=== PATIENT | female | born 1970 | race Caucasian/White ===

== ENCOUNTER 2017-12-30 13:04 | Emergency (ER) | payer OTHER ==
[2017-12-30] MEDS ORDERED: SODIUM CHLORIDE 0.9% 500 ML IV STA (13:20)
[2017-12-30] MEDS ORDERED: SODIUM CHLORIDE 0.9% 1,000 ML IV STA (13:20)
[2017-12-30] MEDS ORDERED: RX INFO: IV CONTRAST WAS GIVEN 1 EACH MISC MISCELLANE PRN (13:20)
[2017-12-30 14:04] LABS: Basophils % (A) 0 %; Eosinophils # (A) 0.2 k/uL (0-0.7); Eosinophils % (A) 2 %; HCT 42.8 % (34.0-46.0); HGB 14.3 gm/dL (11.4-16.0); Lymphocytes # (A) 1.9 k/uL (1.0-4.8); Lymphocytes % (A) 13 %; MCH 27.8 pg (25.0-35.0); MCHC 33.4 g/dL (31.0-37.0); MCV 83.3 fL (80.0-100.0); Mean Platelet Volume 7.8; Monocytes # (A) 0.4 k/uL (0-1.0); Monocytes % (A) 3 %; Neutrophils # (A) 11.5 k/uL (1.3-7.7); Neutrophils % (A) 81 %; Platelet Count 273 k/uL (150-450); RBC 5.13 m/uL (3.80-5.40); RDW 13.1 % (11.5-15.5); WBC 14.2 k/uL (3.8-10.6)
[2017-12-30 14:18] LABS: ALT 27 U/L (9-52); AST 18 U/L (14-36); Alkaline Phosphatase 63 U/L (38-126); Amylase 49 U/L (30-110); Anion Gap 7 mmol/L; Blood Urea Nitrogen 12 mg/dL (7-17); Calcium 9.6 mg/dL (8.4-10.2); Carbon Dioxide 27 mmol/L (22-30); Chloride 104 mmol/L (98-107); Glucose 89 mg/dL (74-99); Lipase 80 U/L (23-300); Sodium 138 mmol/L (137-145); Total Bilirubin 0.4 mg/dL (0.2-1.3); Total Protein 6.6 g/dL (6.3-8.2)
--- NOTE | 2017-12-30 14:28 | ED ---
Abdominal Pain HPI - General Chief Complaint: Abdominal Pain Stated Complaint: chest pain Time Seen by Provider: 12/30/17 13:15 Source: patient Mode of arrival: ambulatory Limitations: no limitations - History of Present Illness Initial Comments: This 47-year-old white female presents with a complaint of some abdominal pain. She states that it occurred fairly suddenly well at work shortly prior to arrival. She states that it is from her lower chest all the way down into her pelvis diffusely. She states that it was very severe initially and much improved currently. She denies any nausea, vomiting, diarrhea, constipation, fever, or chills. Previous similar incidents. She did not have anything to eat today so it does not appear to be food related. She is having tenderness mostly in her right lower quadrant. No other complaints or modifying factors. - Related Data Previous Rx's Medication Instructions Recorded traMADol HCl [Ultram] 50 - 100 mg PO Q6H PRN #20 tab 12/30/17 Allergies Allergy/AdvReac Type Severity Reaction Status Date / Time No Known Allergies Allergy Verified 12/30/17 14:06 Review of Systems ROS Statement: Those systems with pertinent positive or pertinent negative responses have been documented in the HPI. ROS Other: All systems not noted in ROS Statement are negative. Past Medical History Past Medical History: No Reported History History of Any Multi-Drug Resistant Organisms: None Reported Past Surgical History: No Surgical Hx Reported Past Psychological History: No Psychological Hx Reported Smoking Status: Current every day smoker Past Alcohol Use History: None Reported Past Drug Use History: None Reported General Exam - General Exam Comments Initial Comments: GENERAL: The patient is well nourished and well hydrated. VITAL SIGNS: Heart rate, blood pressure, respiratory rate reviewed as recorded in nurse's notes. EYES: Pupils are round and reactive. Extraocular movements are intact. No conjunctival / lid redness or swelling. ENT: No external evidence of injury, swelling, or ecchymosis. Airway is patent. Throat is clear. NECK: Nontender. No swelling or evidence of injury. No subcutaneous emphysema. Trachea is midline. No thyroid mass. HEART: Regular rate and rhythm. Good peripheral pulses. LUNGS/CHEST: Breath sounds clear and equal bilaterally. No rales, rhonchi, or wheezes. No ecchymosis, subcutaneous emphysema, or tenderness. ABDOMEN: There is some mild tenderness diffusely throughout the abdomen but worse in the right lower quadrant. No palpable masses or organomegaly. No peritoneal signs. No abdominal wall swelling or ecchymosis. EXTREMITIES: No extremity tenderness. Normal muscle tone and function. No thoracolumbar tenderness. NEUROLOGIC: Sensation is grossly intact. Cranial nerve exam reveals face is symmetrical, tongue is midline, speech is clear. SKIN: No abrasions or ecchymosis is noted. No induration or masses noted. PSYCHIATRIC: Alert and oriented. Appropriate behavior and judgment. Limitations: no limitations Course Vital Signs 12/30/17 12/30/17 13:06 14:01 Temperature 97.4 F L Pulse Rate 79 73 Respiratory 18 18 Rate Blood Pressure 134/68 137/75 O2 Sat by Pulse 100 100 Oximetry Medical Decision Making - Medical Decision Making The patient was seen and examined. All diagnostics were reviewed. An EKG was done and shows a normal sinus rhythm at a rate of 73. There is no acute ST-T wave changes identified. The NE intervals 148, QRS duration is 76, and QTC intervals 427. The recent did have an IV established and had some hydration. She refused any pain medications. The laboratory is reviewed and does show slight leukocytosis. Computed tomography scan did show a 3.6 cm right ovarian cyst. It is felt as though her symptoms likely are related to this cyst with possible slight rupture. They also note an irregular pancreas and the patient is informed of this and need to follow up with primary care physician for possible further testing in this regard. She did not require any pain medications in the ER. Her pain has significantly improved on recheck. Is felt as though she is stable for discharge. She does not have an [employer] doctor in this area and will also be referred to [employer] [facility] for further follow-up. - Lab Data Result diagrams: 12/30/17 13:49 12/30/17 13:49 Lab Results 12/30/17 12/30/17 12/30/17 Range/Units 13:49 13:49 13:49 WBC 14.2 H (3.8-10.6) k/uL RBC 5.13 (3.80-5.40) m/uL Hgb 14.3 (11.4-16.0) gm/dL Hct 42.8 (34.0-46.0) % MCV 83.3 (80.0-100.0) fL MCH 27.8 (25.0-35.0) pg MCHC 33.4 (31.0-37.0) g/dL RDW 13.1 (11.5-15.5) % Plt Count 273 (150-450) k/uL Neutrophils % 81 % Lymphocytes % 13 % Monocytes % 3 % Eosinophils % 2 % Basophils % 0 % Neutrophils # 11.5 H (1.3-7.7) k/uL Lymphocytes # 1.9 (1.0-4.8) k/uL Monocytes # 0.4 (0-1.0) k/uL Eosinophils # 0.2 (0-0.7) k/uL Basophils # 0.0 (0-0.2) k/uL PT 10.6 (9.0-12.0) sec INR 1.1 (<1.2) APTT 24.3 (22.0-30.0) sec Sodium 138 (137-145) mmol/L Potassium 4.0 (3.5-5.1) mmol/L Chloride 104 (98-107) mmol/L Carbon Dioxide 27 (22-30) mmol/L Anion Gap 7 mmol/L BUN 12 (7-17) mg/dL Creatinine 0.60 (0.52-1.04) mg/dL Est GFR (CKD-EPI)AfAm >90 (>60 ml/min/1.73 sqM) Est GFR (CKD-EPI)NonAf >90 (>60 ml/min/1.73 sqM) Glucose 89 (74-99) mg/dL Plasma Lactic Acid Chaim (0.7-2.0) mmol/L Calcium 9.6 (8.4-10.2) mg/dL Total Bilirubin 0.4 (0.2-1.3) mg/dL AST 18 (14-36) U/L ALT 27 (9-52) U/L Alkaline Phosphatase 63 (38-126) U/L Total Protein 6.6 (6.3-8.2) g/dL Albumin 4.0 (3.5-5.0) g/dL Amylase 49 (30-110) U/L Lipase 80 (23-300) U/L Urine Color Urine Appearance (Clear) Urine pH (5.0-8.0) Ur Specific Gackle (1.001-1.035) Urine Protein (Negative) Urine Glucose (UA) (Negative) Urine Ketones (Negative) Urine Blood (Negative) Urine Nitrite (Negative) Urine Bilirubin (Negative) Urine Urobilinogen (<2.0) mg/dL Ur Leukocyte Esterase (Negative) Urine RBC (0-5) /hpf Ur Squamous Epith Cells (0-4) /hpf Urine Mucus (None) /hpf 12/30/17 12/30/17 Range/Units 13:49 14:20 WBC (3.8-10.6) k/uL RBC (3.80-5.40) m/uL Hgb (11.4-16.0) gm/dL Hct (34.0-46.0) % MCV (80.0-100.0) fL MCH (25.0-35.0) pg MCHC (31.0-37.0) g/dL RDW (11.5-15.5) % Plt Count (150-450) k/uL Neutrophils % % Lymphocytes % % Monocytes % % Eosinophils % % Basophils % % Neutrophils # (1.3-7.7) k/uL Lymphocytes # (1.0-4.8) k/uL Monocytes # (0-1.0) k/uL Eosinophils # (0-0.7) k/uL Basophils # (0-0.2) k/uL PT (9.0-12.0) sec INR (<1.2) APTT (22.0-30.0) sec Sodium (137-145) mmol/L Potassium (3.5-5.1) mmol/L Chloride (98-107) mmol/L Carbon Dioxide (22-30) mmol/L Anion Gap mmol/L BUN (7-17) mg/dL Creatinine (0.52-1.04) mg/dL Est GFR (CKD-EPI)AfAm (>60 ml/min/1.73 sqM) Est GFR (CKD-EPI)NonAf (>60 ml/min/1.73 sqM) Glucose (74-99) mg/dL Plasma Lactic Acid Chaim 0.7 (0.7-2.0) mmol/L Calcium (8.4-10.2) mg/dL Total Bilirubin (0.2-1.3) mg/dL AST (14-36) U/L ALT (9-52) U/L Alkaline Phosphatase (38-126) U/L Total Protein (6.3-8.2) g/dL Albumin (3.5-5.0) g/dL Amylase (30-110) U/L Lipase (23-300) U/L Urine Color Light Yellow Urine Appearance Clear (Clear) Urine pH 6.0 (5.0-8.0) Ur Specific Gackle 1.008 (1.001-1.035) Urine Protein Negative (Negative) Urine Glucose (UA) Negative (Negative) Urine Ketones Trace H (Negative) Urine Blood Small H (Negative) Urine Nitrite Negative (Negative) Urine Bilirubin Negative (Negative) Urine Urobilinogen <2.0 (<2.0) mg/dL Ur Leukocyte Esterase Negative (Negative) Urine RBC 3 (0-5) /hpf Ur Squamous Epith Cells 2 (0-4) /hpf Urine Mucus Rare H (None) /hpf Disposition Clinical Impression: Abdominal pain, Ovarian cyst Disposition: HOME SELF-CARE Condition: Good Instructions: Abdominal Pain (ED), Ovarian Cyst (ED) Prescriptions: traMADol HCl [Ultram] 50 - 100 mg PO Q6H PRN #20 tab PRN Reason: Pain Referrals: None,Stated [Primary Care Provider] - 1-2 days Shy Garay, [Doctor of Osteopathic Medicine] - As Soon As Possible Time of Disposition: 15:56
[2017-12-30 14:38] LABS: Appearance,Urine Clear (Clear); Bilirubin,Urine Negative (Negative); Blood,Urine Small (Negative); Color,Urine Light Yellow; Glucose,Urine (UA) Negative (Negative); Ketones,Urine Trace (Negative); Leukocyte Esterase,Urine Negative (Negative); Mucus,Urine Rare /hpf; Protein,Urine Negative (Negative); RBC,Urine 3 /hpf (0-5); Specific Gravity,Urine 1.008 (1.001-1.035); Squamous Epithelial Cell,Urine 2 /hpf (0-4); Urobilinogen,Urine <2.0 mg/dL (<2.0)
[2017-12-30 14:56] LABS: INR 1.1 (<1.2); Partial Thromboplastin Time 24.3 sec (22.0-30.0); Prothrombin Time 10.6 sec (9.0-12.0)
--- NOTE | 2017-12-30 15:46 | CT ---
EXAMINATION TYPE: CT abdomen pelvis w con DATE OF EXAM: 12/30/2017 COMPARISON: NONE INDICATION: abdominal pain today DLP: 838 mGycm, Automated exposure control for dose reduction was used. CONTRAST: 100 mL of Omnipaque 300. Study performed without Oral Contrast TECHNIQUE: Axial images were obtained from above the diaphragm to the pubic rami in the axial plane a t 5 mm thick sections. Reconstructed images are reviewed on the computer in the coronal plane. FINDINGS: Limited CT sections are obtained the lung bases. The lung bases are clear. CT ABDOMEN: Liver: Normal Spleen: Normal Pancreas: Pancreatic duct is slightly prominent measuring 2.6 mm at the body the pancreas. Normal les s than 2 mm. Consider follow-up ERCP. Adrenal glands: The adrenal glands are normal. Gallbladder: Normal Kidneys: No masses are evident. No hydronephrosis is present. No cysts are present. Delayed images were obtained through the kidneys, which remain unremarkable. Aorta: Vascular calcification is within the aorta. Inferior vena cava: Normal. CT PELVIS: Loops of bowel within the abdomen and pelvis are normal. Studies performed without oral contrast limiting the evaluation. Appendix: Normal as visualized. Urinary bladder: Normal. Genitourinary structures: Uterus appears normal. There is a 3.1 x 3.6 cm cyst on the right ovary. Lef t adnexa contains follicles. Additional follicles are on the right ovary. Osseous structures: No suspicious lytic or sclerotic lesions. IMPRESSIONS: 1. 3.6 cm right ovarian cyst. 2. Mild prominence of the pancreatic duct mid body. Consider follow-up.
[2017-12-30 16:20] VITALS: BP 109/64; PULSE 71; RESP 16; TEMP 98.2
== END 2017-12-30 16:20 | disposition home or self-care (01) ==
LOC: EC 13:04
DX: N83.201 Unspecified ovarian cyst, right side (principal); F17.200 Nicotine dependence, unspecified, uncomplicated; Z53.29 Procedure and treatment not carried out because of patient's decision for other reasons
CPT/HCPCS: 99284; 96360; 96361; 36415; 93005; 80053; 82150; 83605; 83690; 85025; 85610; 85730; 81001; 74177; Q9967

== ENCOUNTER 2020-05-25 17:35 | Observation (INO) | payer OTHER ==
--- NOTE | 2020-05-25 18:04 | ED ---
General Adult HPI - General Chief complaint: Chest Pain Stated complaint: tightness in chest/neck pain Time Seen by Provider: 05/25/20 17:48 Source: patient Mode of arrival: wheelchair Limitations: no limitations - History of Present Illness Initial comments: Dictation was produced using [employer] dictation software. please excuse any grammatical, word or spelling errors. This patient was cared for during a federal and state declared state of [facility] secondary to Covid 19 Chief Complaint: 50-year-old female past medical history of tobacco use, presents today with chest pain. History of Present Illness: 50-year-old female she is a regular tobacco user she smokes about one pack a day for several years. Sensitive chest pain. She has strong family history of heart attacks. Her mother from a heart attack in her 50s and her father had a heart attack in his 50s. Patient states that she has pain to the substernal area. She states that it started like a pressure sensation. She rates the pain on a 3 out of 10. She complains of some cloudiness or hands. No diaphoresis. She states there is some symptoms that r adiate to her left jaw. She has no known medical history. Patient states her symptoms have been ongoing for the last 2 days. She denies any dyspnea. The ROS documented in this emergency department record has been reviewed and confirmed by me. Those systems with pertinent positive or negative responses have been documented in the HPI. All other systems are other negative and/or noncontributory. PHYSICAL EXAM: General Impression: Alert and oriented x3, not in acute distress HEENT: Normocephalic atraumatic, extra-ocular movements intact, pupils equal and reactive to light bilaterally, mucous membranes moist. Cardiovascular: Heart regular rate and rhythm Chest: Able to complete full sentences, no retractions, no tachypnea Abdomen: abdomen soft, non-tender, non-distended, no organomegaly Musculoskeletal: Pulses present and equal in all extremities, no peripheral edema Motor: no focal deficits noted Neurological: CN II-XII grossly intact, no focal motor or sensory deficits noted Skin: Intact with no visualized rashes Psych: Normal affect and mood ED course: 50-year-old female presents with chest pain concerning for acute coronary syndrome. As upon arrival are within acceptable limits. EKG was obtained showing no findings of ischemia or infarction. Laboratory evaluation obtained. Patient is leukocytosis 16.9 which. 12.3. Some clear whether this represents an infection. Coag panel is unremarkable. Metabolic panel is negative. Cardiac enzymes negative. Chest x-ray is clear. Patient reevaluated at bedside seems to be stable medical condition. She denies any urinary complaints. Given her elevated white count urinalysis sent. Patient does not have any infectious localizing symptoms. She denies cough, dysuria, abdominal pain. She does not take any steroids. Nonetheless, patient be admitted for rule out ACS. Patient be admitted with serial troponins and cardiology consultation. Patient be admitted to [facility]. Patient given aspirin. EKG interpretation: Ventricular rate 67, normal sinus rhythm,. Interval 136, QRS 80, QTC 414. No ID prolongation, no QTC prolongation, no ST or T-wave changes noted. Overall, this EKG is unremarkable - Related Data Home Medications Medication Instructions Recorded Confirmed Acetaminophen/Pamabrom [Midol 2 tab PO DAILY PRN 05/25/20 05/25/20 Caplet] Ibuprofen [Motrin Ib] 400 mg PO Q6H PRN 05/25/20 05/25/20 Allergies Allergy/AdvReac Type Severity Reaction Status Date / Time No Known Allergies Allergy Verified 05/25/20 18:57 Review of Systems ROS Statement: Those systems with pertinent positive or pertinent negative responses have been documented in the HPI. ROS Other: All systems not noted in ROS Statement are negative. Past Medical History Past Medical History: No Reported History History of Any Multi-Drug Resistant Organisms: None Reported Past Surgical History: No Surgical Hx Reported Past Psychological History: No Psychological Hx Reported Smoking Status: Current every day smoker Past Alcohol Use History: None Reported Past Drug Use History: None Reported General Exam Limitations: no limitations Course Vital Signs 05/25/20 05/25/20 05/25/20 17:43 18:12 18:55 Temperature 98.4 F Pulse Rate 75 78 64 Respiratory 18 16 16 Rate Blood Pressure 125/74 123/79 118/80 O2 Sat by Pulse 99 94 L 97 Oximetry Medical Decision Making - Lab Data Result diagrams: 05/25/20 18:11 05/25/20 18:11 Lab Results 05/25/20 05/25/20 05/25/20 Range/Units 18:11 18:11 18:11 WBC 16.9 H (3.8-10.6) k/uL RBC 5.22 (3.80-5.40) m/uL Hgb 14.2 (11.4-16.0) gm/dL Hct 45.2 (34.0-46.0) % MCV 86.6 (80.0-100.0) fL MCH 27.2 (25.0-35.0) pg MCHC 31.4 (31.0-37.0) g/dL RDW 13.5 (11.5-15.5) % Plt Count 291 (150-450) k/uL Neutrophils % 73 % Lymphocytes % 20 % Monocytes % 3 % Eosinophils % 2 % Basophils % 0 % Neutrophils # 12.3 H (1.3-7.7) k/uL Lymphocytes # 3.4 (1.0-4.8) k/uL Monocytes # 0.6 (0-1.0) k/uL Eosinophils # 0.4 (0-0.7) k/uL Basophils # 0.1 (0-0.2) k/uL PT 10.8 (9.0-12.0) sec INR 1.1 (<1.2) APTT 24.1 (22.0-30.0) sec Sodium 133 L (137-145) mmol/L Potassium 4.1 (3.5-5.1) mmol/L Chloride 104 (98-107) mmol/L Carbon Dioxide 23 (22-30) mmol/L Anion Gap 6 mmol/L BUN 11 (7-17) mg/dL Creatinine 0.53 (0.52-1.04) mg/dL Est GFR (CKD-EPI)AfAm >90 (>60 ml/min/1.73 sqM) Est GFR (CKD-EPI)NonAf >90 (>60 ml/min/1.73 sqM) Glucose 89 (74-99) mg/dL Calcium 9.8 (8.4-10.2) mg/dL Troponin I (0.000-0.034) ng/mL 05/25/20 Range/Units 18:11 WBC (3.8-10.6) k/uL RBC (3.80-5.40) m/uL Hgb (11.4-16.0) gm/dL Hct (34.0-46.0) % MCV (80.0-100.0) fL MCH (25.0-35.0) pg MCHC (31.0-37.0) g/dL RDW (11.5-15.5) % Plt Count (150-450) k/uL Neutrophils % % Lymphocytes % % Monocytes % % Eosinophils % % Basophils % % Neutrophils # (1.3-7.7) k/uL Lymphocytes # (1.0-4.8) k/uL Monocytes # (0-1.0) k/uL Eosinophils # (0-0.7) k/uL Basophils # (0-0.2) k/uL PT (9.0-12.0) sec INR (<1.2) APTT (22.0-30.0) sec Sodium (137-145) mmol/L Potassium (3.5-5.1) mmol/L Chloride (98-107) mmol/L Carbon Dioxide (22-30) mmol/L Anion Gap mmol/L BUN (7-17) mg/dL Creatinine (0.52-1.04) mg/dL Est GFR (CKD-EPI)AfAm (>60 ml/min/1.73 sqM) Est GFR (CKD-EPI)NonAf (>60 ml/min/1.73 sqM) Glucose (74-99) mg/dL Calcium (8.4-10.2) mg/dL Troponin I <0.012 (0.000-0.034) ng/mL Disposition Clinical Impression: Chest pain Disposition: ADMITTED IP TO THIS [facility] Condition: Fair Referrals: None,Stated [Primary Care Provider] - 1-2 days Decision Time: 19:11
[2020-05-25 18:26] LABS: Basophils # (A) 0.1 k/uL (0-0.2); Basophils % (A) 0 %; Eosinophils # (A) 0.4 k/uL (0-0.7); Eosinophils % (A) 2 %; HCT 45.2 % (34.0-46.0); HGB 14.2 gm/dL (11.4-16.0); Lymphocytes # (A) 3.4 k/uL (1.0-4.8); Lymphocytes % (A) 20 %; MCH 27.2 pg (25.0-35.0); MCHC 31.4 g/dL (31.0-37.0); MCV 86.6 fL (80.0-100.0); Mean Platelet Volume 8.3; Monocytes # (A) 0.6 k/uL (0-1.0); Monocytes % (A) 3 %; Neutrophils # (A) 12.3 k/uL (1.3-7.7); Neutrophils % (A) 73 %; Platelet Count 291 k/uL (150-450); RBC 5.22 m/uL (3.80-5.40); RDW 13.5 % (11.5-15.5); WBC 16.9 k/uL (3.8-10.6)
[2020-05-25 18:35] LABS: African American GFR (CKD) >90 (>60 ml/min/1.73 sqM); Anion Gap 6 mmol/L; Blood Urea Nitrogen 11 mg/dL (7-17); Calcium 9.8 mg/dL (8.4-10.2); Carbon Dioxide 23 mmol/L (22-30); Chloride 104 mmol/L (98-107); Glucose 89 mg/dL (74-99); Non-African American GFR(CKD) >90 (>60 ml/min/1.73 sqM); Potassium 4.1 mmol/L (3.5-5.1); Sodium 133 mmol/L (137-145)
[2020-05-25 18:38] LABS: INR 1.1 (<1.2); Partial Thromboplastin Time 24.1 sec (22.0-30.0); Prothrombin Time 10.8 sec (9.0-12.0)
--- NOTE | 2020-05-25 19:03 | XR ---
EXAMINATION TYPE: XR chest 1V portable DATE OF EXAM: 05/25/2020 COMPARISON: NONE HISTORY: Chest pain TECHNIQUE: Single view FINDINGS: Heart and mediastinum are normal. Lungs are clear. Diaphragm is normal. Bony thorax appears normal. There is pulmonary hyperinflation and flattening of the diaphragm. There are chest leads. IMPRESSION: No active cardiopulmonary disease.. There is probably COPD.
[2020-05-25] MEDS ORDERED: ASPIRIN 81 MG PO STA (19:08)
[2020-05-25] MEDS ORDERED: NITROGLYCERIN SL TABS 0.4 MG TAB SUBLINGUAL PRN (19:08)
[2020-05-25 21:04] LABS: Appearance,Urine Clear (Clear); Bilirubin,Urine Negative (Negative); Blood,Urine Small (Negative); Color,Urine Yellow; Glucose,Urine (UA) Negative (Negative); Ketones,Urine 2+ (Negative); Leukocyte Esterase,Urine Negative (Negative); Mucus,Urine Rare /hpf; Nitrite,Urine Negative (Negative); PH, Urine 5.5 (5.0-8.0); Protein,Urine Negative (Negative); RBC,Urine 1 /hpf (0-5); Specific Gravity,Urine 1.019 (1.001-1.035); Squamous Epithelial Cell,Urine 2 /hpf (0-4); Urobilinogen,Urine <2.0 mg/dL (<2.0); WBC,Urine 1 /hpf (0-5)
[2020-05-25] MEDS ORDERED: LORazepam 1 MG TAB PO PRN (21:23)
[2020-05-25] MEDS ORDERED: MORPHINE SULFATE 2 MG/ML SYRINGE IVP PRN (21:23)
--- NOTE | 2020-05-25 21:29 | P.HPIM ---
History of Present Illness H&P Date: 05/25/20 Chief Complaint: chest pain 50-year-old female with no significant past medical history Patient comes in with sudden onset chest pain that started last night and has been ongoing off and on until today she rates the pain 8 out of 10 in severity feels like pressure retrosternal nonradiating associated with some dizziness lightheadedness and heavy breathing. Denies any sweating except in her palms of both hands off-and-on. Denies any palpitations except for some skipped beats that she felt. Denies any aggravating or alleviating factors. She took nothing for it at home but because the pain persisted off-and-on she decided to come the hospital for evaluation she reports that the pain is happening at rest while doing nothing she has an active smoker, but denies any drugs or alcohol on regular basis. Denies any other medical problems she doesn't take any medica tions at home Otherwise patient denies any fevers or chills denies any coughing denies any urinary changes or bowel habit changes denies any abdominal pain denies any headache. She reports strong family history of premature CAD in the family. In the ED blood work overall was unremarkable,except for elevated white count EKG showed normal sinus rhythm chest x-ray was unremarkable Review of Systems Pertinent positives as noted in HPI. All other systems were reviewed and are negative Past Medical History Past Medical History: No Reported History History of Any Multi-Drug Resistant Organisms: None Reported Past Surgical History: No Surgical Hx Reported Past Psychological History: No Psychological Hx Reported Smoking Status: Current every day smoker Past Alcohol Use History: None Reported Past Drug Use History: None Reported - Past Family History Family Additional Family Medical History / Comment(s): Premature CAD Medications and Allergies Home Medications Medication Instructions Recorded Confirmed Type Acetaminophen/Pamabrom [Midol 2 tab PO DAILY PRN 05/25/20 05/25/20 History Caplet] Ibuprofen [Motrin Ib] 400 mg PO Q6H PRN 05/25/20 05/25/20 History Allergies Allergy/AdvReac Type Severity Reaction Status Date / Time No Known Allergies Allergy Verified 05/25/20 18:57 Physical Exam Vitals: Vital Signs Temp Pulse Pulse Resp BP BP Pulse Ox 05/25/20 20:00 98.4 F 55 L 18 111/65 100 05/25/20 19:17 64 18 117/73 98 08/01/20 18:55 64 16 118/80 97 05/25/20 18:12 78 16 123/79 94 L 05/25/20 17:43 98.4 F 75 18 125/74 99 Intake and Output 05/25/20 05/25/20 05/25/20 06:59 14:59 22:59 Other: Weight 54.431 kg Constitutional: No acute distress, conversant, pleasant, thin, looks older than stated age Eyes: Anicteric sclerae, moist conjunctiva, Pupils equal round reactive to light ENMT: NC/AT Oropharynx clear, no erythema, or exudates Neck: Supple, FROM, no masses, or JVD No carotid bruits No thyromegaly Lungs: Clear to auscultation Clear to percussion Normal respiratory effort, no accessory muscle use Cardiovascular: Heart regular in rate and rhythm, No murmurs, gallops, or rubs No peripheral edema Abdominal: Soft Nontender, no guarding, rebound or rigidity Abdomen moving with respiration Normoactive bowel sounds No hepatomegaly, No splenomegaly No palpable mass No abdominal wall hernia noted Skin: Normal temperature, tone, texture, turgor No induration No subcutaneous nodules No rash, lesions No ulcers Extremities: No digital cyanosis No clubbing Pedal pulses intact and symmetrical Radial pulses intact and symmetrical No calf tenderness Psychiatric: Alert and oriented to person, place and time Appropriate affect fair judgement Neuro Muscles Strength 5/5 in all 4 extremities Sensation to light touch grossly present throughout Cranial nerves II-XII grossly intact No focal sensory deficits Lymphatics: no palpable cervical or supraclavicular , or inguinal lymph nodes Results CBC & Chem 7: 05/25/20 18:11 05/25/20 18:11 Labs: Abnormal Lab Results - Last 24 Hours (Table) 05/25/20 05/25/20 Range/Units 18:11 18:11 WBC 16.9 H (3.8-10.6) k/uL Neutrophils # 12.3 H (1.3-7.7) k/uL Sodium 133 L (137-145) mmol/L Assessment and Plan Assessment: Atypical chest pain with strong family history of premature CAD patient is a smoker Admitted to rule out acute coronary syndrome Serial troponins Nitro when necessary Morphine for pain Ativan for anxiety IV fluid hydration gentle Cardiac monitoring Cardiology consult Check TSH Check lipid profile Check A1c leukocytosis , no identifiable focus of infection afebrile continue to mointor CODE STATUS: Full code DVT prophylaxis: Heparin subcu 3 times a day Discussed with: Patient, ER, RN Anticipated length of stay less than [address]: Home A total of 75 minutes was spent on the care of this complex patient more than 50% of the time was spent in counseling and care coordination.
[2020-05-25] MEDS: SODIUM CHLORIDE 0.9% 1,000 ML IV SCH (23:44)
[2020-05-26] MEDS: HEPARIN SODIUM,PORCINE 5,000 UNIT/ML 1 ML VIAL SQ SCH ×3 (00:07→16:25)
[2020-05-26 00:48] LABS: Cholesterol 181 mg/dL (<200); HDL Cholesterol 55 mg/dL (40-60); LDL Cholesterol,Calculated 109 mg/dL (0-99); Triglycerides 86 mg/dL (<150)
[2020-05-26 06:27] LABS: Cholesterol 173 mg/dL (<200); HDL Cholesterol 50 mg/dL (40-60); LDL Cholesterol,Calculated 110 mg/dL (0-99); Triglycerides 65 mg/dL (<150)
[2020-05-26 08:18] LABS: HCT 42.2 % (34.0-46.0); HGB 13.4 gm/dL (11.4-16.0); MCHC 31.9 g/dL (31.0-37.0); MCV 87.9 fL (80.0-100.0); Mean Platelet Volume 9.4; Platelet Count 268 k/uL (150-450); RDW 13.5 % (11.5-15.5); WBC 12.9 k/uL (3.8-10.6)
[2020-05-26 08:31] LABS: African American GFR (CKD) >90 (>60 ml/min/1.73 sqM); Anion Gap 4 mmol/L; Blood Urea Nitrogen 10 mg/dL (7-17); Calcium 8.6 mg/dL (8.4-10.2); Carbon Dioxide 25 mmol/L (22-30); Chloride 107 mmol/L (98-107); Glucose 85 mg/dL (74-99); Non-African American GFR(CKD) >90 (>60 ml/min/1.73 sqM); Potassium 4.4 mmol/L (3.5-5.1); Sodium 136 mmol/L (137-145)
[2020-05-26] MEDS: ASPIRIN 325 MG TAB PO SCH (09:05)
--- NOTE | 2020-05-26 10:20 | CONS ---
BHAVANI Rivera is a 50-year-old lady who is admitted to hospital with chest pressure, 8 out of 10 intensity in the precordial area that started suddenly. It was associated with some skipped beats. There were no clear-cut relieving or exacerbating factors. Came to the hospital where she was admitted. EKG does not reveal ischemic changes. Cardiac enzymes have been negative and a chest x-ray is unremarkable. PAST MEDICAL HISTORY: Negative for hypertension, diabetes or dyslipidemia. FAMILY HISTORY: Significant for premature coronary artery disease. SOCIAL HISTORY: Significant for smoking. There is no history of EtOH abuse or drug abuse. REVIEW OF SYSTEMS: HEENT is unremarkable. Cardiac as described above. Respiratory as described above. GI negative. negative. Allergy/Immunology: None. Skin negative. Musculoskeletal: Significant for arthritis. Psychosocial negative. Endocrine negative. Derm negative. Constitutional negative. Oncological negative. [employer] negative. Rest of the system review is not relevant. PHYSICAL EXAM: Patient is comfortable at rest. Vital signs are stable. There is no jugular venous distention. Carotid upstroke is normal. There is no bruit. Chest exam reveals good air entry bilaterally. Heart exam reveals first and second heart sounds. No gallop. Abdomen is soft, nontender. Exam of extremities did not reveal any edema. Peripheral pulses are felt. LABS: Show that the troponins are negative. LDL cholesterol is 110. Potassium is 4.4, hemoglobin is 13.4. ASSESSMENT: Precordial chest pain, rule out coronary artery disease. PLAN: Patient's chest pain has both typical and atypical components to it. EKG does not reveal ischemic changes. Cardiac enzymes have been negative. She does have significant coronary risk factors including smoking and strong family history. I talked to her about her treatment options including stress test and cardiac catheterization. Understanding risks, benefits, she wishes to go through a stress test. I will schedule her for a stress Cardiolite study tomorrow morning. If that is abnormal, she will undergo cardiac catheterization. If not, she will be discharged home and work on risk factor modification. MMODL / IJN: [id number] /
[2020-05-26 12:06] VITALS: BMI 18.8
--- NOTE | 2020-05-26 13:01 | P.PN ---
Subjective Progress Note Date: 05/26/20 Principal diagnosis: chest pain Patient is a 50-year-old female with no significant past medical history other than tobacco abuse who presented in with chest pain. She does have a significant family history of coronary artery disease a mother who of myocardial infarction at age 51. On arrival to the ER vital signs within normal limits. Initial laboratory analysis showed a white blood cell count was 16.9, sodium 133. Initial troponin was negative. EKG was unremarkable. She was admitted for chest pain observation. Remainder for troponins remain negative. 2 she in by cardiology and plan is for echocardiogram and stress test in a.m. Patient seen and examined at bedside. She is currently chest pain-free, she denies any nausea, vomiting, lightheadedness, dizziness, or significant shortness of breath. We discussed that her only modifiable risk factor at this time appears. Tobacco abuse his blood pressure is well controlled, sugars are normal, and LDL is mildly elevated at 110. She states that she must be discharged tomorrow she has an interview on Wednesday. Objective - Vital Signs Vital signs: Vital Signs Temp 97.7 F 05/26/20 08:37 Pulse 63 05/26/20 08:37 Resp 16 05/26/20 08:37 BP 105/67 05/26/20 08:37 Pulse Ox 100 05/26/20 08:37 Intake & Output 05/25/20 05/26/20 05/26/20 18:59 06:59 18:59 Intake Total 450 Output Total 60 Balance 390 Weight 54.431 kg 54.431 kg 54.431 kg Intake: Oral 450 Output: Urine 60 Other: Voiding Method Toilet Toilet # Voids 2 2 - Exam General: non toxic, no distress, appears at stated age Derm: warm, dry Head: atraumatic, normocephalic, symmetric Eyes: EOMI, no lid lag, anicteric sclera Mouth: no lip lesion, mucus membranes moist Cardiovascular: S1S2 reg, no murmur, positive posterior tibial pulse bilateral, Lungs: CTA bilateral, no rhonchi, no rales , no accessory muscle use Abdominal: soft, nontender to palpation, no guarding, no appreciable organomegaly Ext: no gross muscle atrophy, no edema, no contractures Neuro: CN II-XI grossly intact, no focal neuro deficits Psych: Alert, oriented, appropriate affect - Labs CBC & Chem 7: 05/26/20 05:40 05/26/20 05:40 Labs: Abnormal Lab Results - Last 24 Hours (Table) 05/25/20 05/25/20 05/25/20 Range/Units 18:11 18:11 19:05 WBC 16.9 H (3.8-10.6) k/uL Neutrophils # 12.3 H (1.3-7.7) k/uL Sodium 133 L (137-145) mmol/L Creatinine (0.52-1.04) mg/dL LDL Cholesterol, Calc (0-99) mg/dL Urine Ketones 2+ H (Negative) Urine Blood Small H (Negative) Urine Mucus Rare H (None) /hpf 05/26/20 05/26/20 05/26/20 Range/Units 00:02 05:40 05:40 WBC 12.9 H (3.8-10.6) k/uL Neutrophils # (1.3-7.7) k/uL Sodium (137-145) mmol/L Creatinine (0.52-1.04) mg/dL LDL Cholesterol, Calc 109 H 110 H (0-99) mg/dL Urine Ketones (Negative) Urine Blood (Negative) Urine Mucus (None) /hpf 05/26/20 Range/Units 05:40 WBC (3.8-10.6) k/uL Neutrophils # (1.3-7.7) k/uL Sodium 136 L (137-145) mmol/L Creatinine 0.49 L (0.52-1.04) mg/dL LDL Cholesterol, Calc (0-99) mg/dL Urine Ketones (Negative) Urine Blood (Negative) Urine Mucus (None) /hpf Assessment and Plan Assessment: Chest pain -Troponin normal -Continue with telemetry -Aspirin, statin -Cardiology recommendations: Stress test in a.m. - check UDS Leukocytosis - likely reactive and decreasing - repeat CBC in AM Tobacco abuse -Cessation -Patient wants to quit no nicotine replacement was provided at this point in time Dyslipidemia -Mild -Would encourage lifestyle modifications after discharge -Statin DVT prophylaxis: SCDs Discussed with: Patient, nursing Anticipated discharge: In a.m. Anticipated discharge place: Home A total of 25 minutes was spent on the care of this complex patient more than 50% of the time was spent in counseling and care coordination.
[2020-05-26 15:16] LABS: Amphetamine Screen,Urine Not Detected (NotDetected); Barbiturate Screen,Urine Not Detected (NotDetected); Benzodiazepines Screen,Urine Not Detected (NotDetected); Cocaine Screen,Urine Not Detected (NotDetected); Methadone Screen, Urine Not Detected (NotDetected); Opiate Screen,Urine Not Detected (NotDetected); Oxycodone Screen, Urine Not Detected (NotDetected); Phencyclidine Screen,Urine Not Detected (NotDetected); Tricyclic Antidepressant,Urine Not Detected (NotDetected); Urn Cannabinoid Scrn Not Detected (NotDetected)
[2020-05-26] MEDS: SODIUM CHLORIDE 0.9% 1,000 ML IV SCH ×2 (20:09→23:12)
[2020-05-26] MEDS ORDERED: ATORVASTATIN 40 MG TAB PO SCH (21:00)
[2020-05-27] MEDS: HEPARIN SODIUM,PORCINE 5,000 UNIT/ML 1 ML VIAL SQ SCH (00:01)
[2020-05-27] MEDS: ASPIRIN 325 MG TAB PO SCH (08:33)
[2020-05-27 08:41] VITALS: PULSE 60; RESP 16; TEMP 98
[2020-05-27 08:53] LABS: HCT 42.2 % (34.0-46.0); HGB 13.1 gm/dL (11.4-16.0); Hypochromasia Slight; MCH 27.9 pg (25.0-35.0); MCV 90.1 fL (80.0-100.0); Mean Platelet Volume 8.7; Platelet Count 240 k/uL (150-450); RBC 4.68 m/uL (3.80-5.40); RDW 13.5 % (11.5-15.5); WBC 11.9 k/uL (3.8-10.6)
--- NOTE | 2020-05-27 09:57 | P.PN ---
Subjective This is a pleasant 50-year-old female past medical history significant for chronic nicotine dependence as well as family history for premature coronary artery disease in both her mother and father. She is seen and examined resting comfortably sitting up in bed in no acute distress. She has had no further symptoms of chest discomfort since arriving at the hospital. She denies shortness of breath, dizziness or palpitations. Blood pressure 102/65 heart rate 68 afebrile maintaining oxygen saturation on room air. Laboratory data rev iewed, WBC 11.9, hemoglobin 13.1, platelets 240. Currently maintained on aspirin 325 mg daily and atorvastatin 40 mg at bedtime. Telemetry tracings have been unremarkable. GENERAL: Well-appearing, well-nourished and in no acute distress. NECK: Supple without JVD or thyromegaly. LUNGS: Breath sounds clear to auscultation bilaterally. Respiration equal and unlabored. No wheezes, rales or rhonchi. HEART: Regular rate and rhythm without murmurs, rubs or gallops. S1 and S2 heard. EXTREMITIES: Normal range of motion, no edema. No clubbing or cyanosis. Peripheral pulses intact. ASSESSMENT Chest pain and palpitations, an acute coronary event has been ruled out. Telemetry tracings unremarkable for an acute arrhythmia. Chronic nicotine dependence Dyslipidemia Family history of premature coronary artery disease PLAN Proceed with stress test as previously ordered. If abnormality noted. We will consider cardiac catheterization. If stress test is normal she is stable to be discharged from a cardiac perspective. Recommend smoking cessation. Nurse Practitioner note has been reviewed, I agree with a documented findings and plan of care. Patient was seen and examined. Objective - Vital Signs Vital signs: Vital Signs Temp 98 F 05/27/20 08:40 Pulse 60 05/27/20 08:40 Resp 16 05/27/20 08:40 BP 102/65 05/27/20 08:40 Pulse Ox 99 05/27/20 08:40 Intake & Output 05/26/20 05/27/20 05/27/20 18:59 06:59 18:59 Intake Total 625 Balance 625 Weight 54.431 kg Intake: Intake, IV Titration 375 Amount Sodium Chloride 0.9% 1, 375 000 ml @ 75 mls/hr IV . [id number] Rx#:[id number] Oral 250 Other: Voiding Method Toilet Toilet # Voids 2 1 1 - Labs CBC & Chem 7: 05/27/20 08:19 05/26/20 05:40 Labs: Abnormal Lab Results - Last 24 Hours (Table) 05/27/20 Range/Units 08:19 WBC 11.9 H (3.8-10.6) k/uL
[2020-05-27 10:40] LABS: Hemoglobin A1C 5.1 % (4.0-6.0)
--- NOTE | 2020-05-27 12:00 | NM ---
EXAMINATION TYPE: NM stress cardiolite complete DATE OF EXAM: 05/27/2020 COMPARISON: NONE HISTORY: Chest pain TECHNIQUE: After the intravenous administration of 9.8 mCi Tc 99m Sestamibi - Rest images obtained 6 5 minutes post injection. The patient exercised using a ALICE protocol and 1 minute prior to peak e xercise was injected with 27.1 mCi Tc 99m Sestamibi - Stress images obtained 20 minutes post injectio n. FINDINGS: Targeted heart rate was achieved during performance of the study. Review of stress and rest SPECT sonia ges demonstrates no distinct perfusion abnormality. Gated analysis shows normal wall motion with an estimated left ventricular ejection fraction of 60 %. IMPRESSION: No scintigraphic evidence for reversible ischemia
[2020-05-27 14:37] VITALS: BP 110/69
--- NOTE | 2020-05-27 15:00 | ECHOF ---
Referral Reason:chest pain MEASUREMENTS -------- HEIGHT: 170.2 cm WEIGHT: 54.4 kg BP: 102/65 IVSd: 0.8 cm (0.6 - 1.1) LVIDd: 4.5 cm (3.9 - 5.3) LVPWd: 0.9 cm (0.6 - 1.1) IVSs: 1.3 cm LVIDs: 3.0 cm LVPWs: 1.3 cm LA Diam: 2.9 cm (2.7 - 3.8) RVIDd: 2.7 cm (< 3.3) LAESV Index (A-L): 16.12 ml/m Ao Diam: 2.9 cm (2.0 - 3.7) AV Cusp: 1.9 cm (1.5 - 2.6) EPSS: 0.5 cm MV E Sonido: 0.80 m/s MV DecT: 213 ms MV A Sonido: 0.35 m/s MV E/A Ratio: 2.31 MV EF SLOPE: 128.51 mm/s (70 - 150) MV EXCURSION: 23.95 mm (> 18.000) FINDINGS -------- Sinus rhythm. This was a technically good study. The left ventricular size is normal. Left ventricular wall thickness is normal. Overall left vent ricular systolic function is low-normal with, an EF between 50 - 55 %. The right ventricle is normal in size. Normal LA size by volume 22+/-6 ml/m2. The right atrium is normal in size. Interatrial and interventricular septum intact. The aortic valve is trileaflet and appears structurally normal. There is trace to mild mitral regurgitation. The tricuspid valve appears structurally normal. There is no pulmonic regurgitation present. The aortic root size is normal. Normal inferior vena cava with normal inspiratory collapse consistent with estimated right atrial pre ssure of 5 mmHg. There is no pericardial effusion. CONCLUSIONS -------- 1. The left ventricular size is normal. 2. Left ventricular wall thickness is normal. 3. Overall left ventricular systolic function is low-normal with, an EF between 50 - 55 %. 4. The aortic valve is trileaflet and appears structurally normal. 5. There is trace to mild mitral regurgitation. 6. There is no pericardial effusion. RECORDS SUPERVISOR: Deya Díaz [facility]
--- NOTE | 2020-05-27 16:47 | P.DS ---
Providers Date of admission: 05/25/20 19:08 Expected date of discharge: 05/27/20 Attending physician: Nemesio Xavier MD Consults: 05/25/20 19:08 Consult Physician Urgent Consulting Provider: Aleena Saucedo Consult Reason/Comments: chest pain Do you want consulting provider notified?: Yes Primary care physician: Stated None Hospital Course: Discharge Diagnosis: Non cardiac chest pain Probable acute anxiety Dyslipidemia Tobacco abuse Hospital Course: Patient is a 50-year-old female with no significant past medical history other than tobacco abuse who presented in with chest pain. She does have a significant family history of coronary artery disease a mother who of myocardial infarction at age 51. On arrival to the ER vital signs within normal limits. Initial laboratory analysis showed a white blood cell count was 16.9, sodium 133. Initial troponin was negative. EKG was unremarkable. She was admitted for chest pain observation. Remainder for troponins remain negative. She was seen by cardiology underwent an echocardiogram which was normal. Nuclear stress test unremarkable. She does report increased stress and anxiety at home/work. She extablish with a PCP in the area and was given a list of PCP accepting new patients. She will get a call from the [facility] worker office with an appointment. Patient seen and examined at bedside. No chest pain, SOB, nausea. Having increased anxiety at home. Vital signs reviewed and stable. General: non toxic, no distress, appears at stated age Derm: warm, dry Head: atraumatic, normocephalic, symmetric Eyes: EOMI, no lid lag, anicteric sclera Mouth: no lip lesion, mucus membranes moist Cardiovascular: S1S2 reg, no murmur, positive posterior tibial pulse bilateral, Lungs: CTA bilateral, no rhonchi, no rales , no accessory muscle use Abdominal: soft, nontender to palpation, no guarding, no appreciable organomegaly Ext: no gross muscle atrophy, no edema, no contractures Neuro: CN II-XI grossly intact, no focal neuro deficits Psych: Alert, oriented, appropriate affect A total of 25 minutes of time were spent preparing this complex discharge summary . Patient Condition at Discharge: Stable Plan - Discharge Summary Discharge Rx Participant: Yes New Discharge Prescriptions: New Aspirin 81 mg PO DAILY chew Atorvastatin [Lipitor] 40 mg PO HS #30 tab Continue Ibuprofen [Motrin Ib] 400 mg PO Q6H PRN PRN Reason: Headache Acetaminophen/Pamabrom [Midol Caplet] 2 tab PO DAILY PRN PRN Reason: CRAMPS Discharge Medication List Acetaminophen/Pamabrom [Midol Caplet] 2 tab PO DAILY PRN 05/25/20 [History] Ibuprofen [Motrin Ib] 400 mg PO Q6H PRN 05/25/20 [History] Aspirin 81 mg PO DAILY chew 05/27/20 [Rx] Atorvastatin [Lipitor] 40 mg PO HS #30 tab 05/27/20 [Rx] Follow up Appointment(s)/Referral(s): Jose Bradley MD [STAFF PHYSICIAN] - 1 Week Cinthia Tang NPC [REFERRING] - 1 Week None,Stated [Primary Care Provider] - 1-2 days (please call to establish yourself with a pcp and schedule a follow up appointment.) Surya Cooper MD [STAFF PHYSICIAN] - 2 Weeks (The office will call you to schedule an appointment.) Patient Instructions/Handouts: Chest Pain (GEN), Heart Healthy Diet (GEN) Activity/Diet/Wound Care/Special Instructions: Activity: as tolerated Diet: regular Special Instructions: Stop smoking Discharge Disposition: HOME SELF-CARE
--- NOTE | 2020-05-27 17:13 | P.STRESS ---
- Stress Test Note Stress Test Results/Findings: Exam Performed: NM stress cardiolite complete Exam Date: 05/27/20 Reason for Exam: CHEST PAIN Height: 5 ft 7 in Weight: 54.431 kg Protocol: ALICE Stage: 3 Duration of Exercise: 7:15 Resting Heart Rate: 68 Resting Blood Pressure: 120/73 Maximum Achieved Heart Rate: 152 Maximum Achieved Blood Pressure: 182/80 85% PMHR: 146 100% PMHR: 172 METS: 8.7 Technologist Comment: Stress Test Results/Findings: Baseline heart rate 68 beats a minute, Baseline blood pressure 120/73 mmHg Patient exercised on a Alice protocol for 7 minutes 15 seconds, achieving a peak 100 151 beats a minute There is no definite ECG was ischemia No arrhythmias are noted Impression average exercise capacity without ECG ms for ischemia
[2020-05-28] MEDS ORDERED: ASPIRIN 81 MG PO SCH (09:00)
== END 2020-05-27 15:38 | disposition home or self-care (01) ==
LOC: EC 17:35 → 3NCARDOBS 19:08
PROVIDERS: ADMIT Internal Medicine; ATTEND Internal Medicine
DX: R07.2 Precordial pain (principal); R68.89 Other general symptoms and signs; R42 Dizziness and giddiness; R06.00 Dyspnea, unspecified; R00.2 Palpitations; F43.8 Other reactions to severe stress; F41.9 Anxiety disorder, unspecified; E78.5 Hyperlipidemia, unspecified; D72.829 Elevated white blood cell count, unspecified; F17.210 Nicotine dependence, cigarettes, uncomplicated; Z03.818 Encounter for observation for suspected exposure to other biological agents ruled out; Z82.49 Family history of ischemic heart disease and other diseases of the circulatory system
CPT/HCPCS: 93005 ×2; 99285; 36415; 93017; 93306; 80061; 80048 ×2; 84443; 84484 ×2; 85025; 85027 ×2; 85610; 85730; 81001; 80306; 83036; 71045; 78452; G0378 ×3; U0003; A9500

== ENCOUNTER 2020-08-13 05:56 | Emergency (ER) | payer OTHER ==
[2020-08-13 06:03] VITALS: BP 122/80; PULSE 77; RESP 18; TEMP 98
[2020-08-13] MEDS ORDERED: AMOXIC-POT CLAV 875MG STARTER PACK 2 TAB BTL PO STA (06:15)
[2020-08-13] MEDS ORDERED: MECLIZINE 12.5 MG TAB PO STA (06:15)
[2020-08-13] MEDS ORDERED: ACETAMINOPHEN TAB 500 MG TAB PO STA (06:15)
--- NOTE | 2020-08-13 06:16 | ED ---
ENT HPI - General Chief complaint: Dental/Oral Stated complaint: Facial Swelling Time Seen by Provider: 08/13/20 06:05 Source: patient, RN notes reviewed, old records reviewed Mode of arrival: ambulatory Limitations: no limitations - History of Present Illness Initial comments: 42-year-old female presents emergency room today with chief complaint of right upper molar pain starting yesterday and woke up this morning with significant swelling over her face. Patient states that she's had no fevers or chills. Denies trismus. Patient states she's had attempted to call a dentist yesterday with no success. She plans to do so today. She reports that she's had history of poor dentition and dental infections in the past. She reports that when she woke up this morning she had an episode of room spinning dizziness complaining of some right ear pain as well. Patient reports that she's had no chest pain, shortness breath, nausea or vomiting. She denies fevers. - Related Data Home Medications Medication Instructions Recorded Confirmed Acetaminophen/Pamabrom [Midol 2 tab PO DAILY PRN 05/25/20 05/25/20 Caplet] Ibuprofen [Motrin Ib] 400 mg PO Q6H PRN 05/25/20 05/25/20 Previous Rx's Medication Instructions Recorded Aspirin 81 mg PO DAILY chew 05/27/20 Atorvastatin [Lipitor] 40 mg PO HS #30 tab 05/27/20 Amoxic-Pot Clav 875-125Mg 1 tab PO Q12HR #20 tablet 08/13/20 [Augmentin 875-125] Allergies Allergy/AdvReac Type Severity Reaction Status Date / Time No Known Allergies Allergy Verified 08/13/20 06:03 Review of Systems ROS Statement: Those systems with pertinent positive or pertinent negative responses have been documented in the HPI. ROS Other: All systems not noted in ROS Statement are negative. Past Medical History Past Medical History: No Reported History History of Any Multi-Drug Resistant Organisms: None Reported Past Surgical History: No Surgical Hx Reported Past Psychological History: No Psychological Hx Reported Smoking Status: Current every day smoker Past Alcohol Use History: Rare Past Drug Use History: None Reported - Past Family History Family Additional Family Medical History / Comment(s): Premature CAD General Exam - General Exam Comments Initial Comments: 50 year old female, no distress. Limitations: no limitations General appearance: alert, in no apparent distress Head exam: Present: atraumatic, normocephalic, normal inspection Eye exam: Present: normal appearance, PERRL, EOMI. Absent: scleral icterus, conjunctival injection, periorbital swelling ENT exam: Present: normal exam, mucous membranes moist, other (swelling over R upper molar. No drainable abscess at this time. Patient is on the right upper cheek maxillary area.) Neck exam: Present: normal inspection. Absent: tenderness, meningismus, lymphadenopathy Respiratory exam: Present: normal lung sounds bilaterally. Absent: respiratory distress, wheezes, rales, rhonchi, stridor Cardiovascular Exam: Present: regular rate, normal rhythm, normal heart sounds. Absent: systolic murmur, diastolic murmur, rubs, gallop, clicks GI/Abdominal exam: Present: soft, normal bowel sounds. Absent: distended, tenderness, guarding, rebound, rigid Extremities exam: Present: normal inspection, full ROM, normal capillary refill. Absent: tenderness, pedal edema, joint swelling, calf tenderness Back exam: Present: normal inspection Neurological exam: Present: alert, oriented X3, CN II-XII intact Psychiatric exam: Present: normal affect, normal mood Skin exam: Present: warm, dry, intact, normal color. Absent: rash Course Vital Signs 08/13/20 06:02 Temperature 98 F Pulse Rate 77 Respiratory 18 Rate Blood Pressure 122/80 O2 Sat by Pulse 99 Oximetry Medical Decision Making - Medical Decision Making 32-year-old female presents with 2 days of dental pain and woke up this morning with right upper maxillary swelling. Patient has evidence of infection on the right posterior upper molar. Patient will be started on Augmentin. Just an episode of vertigo like dizziness and complained of some right ear pain. She has no severe infection with some fluid collection. Discussed that Patient needs to treat with antibiotic and we'll give her one dose of meclizine in the ER. Discussed return parameters and following up with dentist. Disposition Clinical Impression: Dental abscess Disposition: HOME SELF-CARE Condition: Good Instructions (If sedation given, give patient instructions): Dental Abscess (ED) Additional Instructions: [facility] [id number] [place] [address] [phone] (existing clients only) For new clients: [phone] 1st consult: $50 (includes Xrays) Usually 30% less then private dentist for visits after. [employer] Have to pay $50 for Xrays anmd rest is covered. [phone] Prescriptions: Amoxic-Pot Clav 875-125Mg [Augmentin 875-125] 1 tab PO Q12HR #20 tablet Is patient prescribed a controlled substance at d/c from ED?: No Referrals: None,Stated [Primary Care Provider] - 1-2 days Time of Disposition: 06:19
== END 2020-08-13 06:32 | disposition home or self-care (01) ==
LOC: EC 05:56
DX: R42 Dizziness and giddiness (principal); K04.7 Periapical abscess without sinus; H92.01 Otalgia, right ear; F17.200 Nicotine dependence, unspecified, uncomplicated
CPT/HCPCS: 99283

== ENCOUNTER → 2021-07-05 | Outpatient (CLI) | payer OTHER ==
[2021-07-05 18:01] LABS: Anion Gap 3.6 mmol/L (4.00-12.00); BUN/Creat Ratio 18.33 Ratio (12.00-20.00); Calcium 9.5 mg/dL (8.7-10.3); Carbon Dioxide 27.4 mmol/L (21.6-31.8); Chol/HDL Ratio 2.57; LDL Cholesterol,Calculated 89.6 mg/dL (0.0-131.0); Potassium 4.8 mmol/L (3.5-5.5); VLDL Calculation 12.4 mg/dL (5.00-40.00)
== END | disposition home or self-care (01) ==
LOC: LABWHC1 10:53
PROVIDERS: ATTEND Nurse Practitioner Adult Health
DX: Z00.00 Encounter for general adult medical examination without abnormal findings (principal); E78.5 Hyperlipidemia, unspecified; F41.1 Generalized anxiety disorder
CPT/HCPCS: 36415; 80048; 80061; 84443